=== PATIENT | female | born 1945 | race Caucasian/White ===

== ENCOUNTER → 2019-09-27 | Outpatient (CLI) | payer MEDICARE ==
[~2019-09-27] MED LIST: ASCO10004 PO; ASPI-496 PO; ATOR20TA37 PO; CALC-126 PO; CHOL200074 PO; CYAN1TAB29 PO; LOSA25TA25 PO; LUTE1CAP3 PO; MULT-658 PO; OMEG1CAP24 PEG; VIT1CAPS42 PO
[2019-09-27 16:10] LABS: BASOPHILS # (AUTO) 0.09 x10^3/uL (0-0.1); BASOPHILS % (AUTO) 1 % (0-1); EOSINOPHILS # (AUTO) 0.33 x10^3/uL (0-0.4); EOSINOPHILS % (AUTO) 3 % (1-7); LYMPHOCYTES # (AUTO) 2.95 x10^3/uL (1-3.4); LYMPHOCYTES % (AUTO) 29 % (22-44); MD NO; MEAN CORPUSCULAR HGB CONC 32.7 g/dL (32.4-35.8); MEAN PLATELET VOLUME 8.6 fL (7.4-10.4); MONOCYTES # (AUTO) 0.62 x10^3/uL (0.2-0.8); MONOCYTES % (AUTO) 6 % (2-9); NEUTROPHILS # (AUTO) 6.17 x10^3/uL (1.8-6.8); NEUTROPHILS % (AUTO) 61 % (42-75); PLATELET COUNT 238 x10^3/uL (130-400); RED BLOOD COUNT 4.21 x10^6/uL (3.82-5.3)
[2019-09-27 16:21] LABS: INTERNATIONAL NORMALIZED RATIO 0.96 (0.93-1.1); PROTHROMBIN TIME 10.2 Seconds (9.6-11.5)
[2019-09-27 16:23] LABS: ALANINE AMINOTRANSFERASE 35 U/L (12-78); ALBUMIN 3.6 g/dL (3.4-5.0); ANION GAP 4 mmol/L (5-15); CALCIUM 9.3 mg/dL (8.5-10.1); CHLORIDE 110 mmol/L (98-107)
[2019-09-27 16:25] LABS: ALKALINE PHOSPHATASE 87 U/L (45-117); BILIRUBIN,TOTAL 0.5 mg/dL (0.2-1.0); CREATININE 0.77 mg/dL (0.55-1.02); TOTAL PROTEIN 7.2 g/dL (6.4-8.2)
== END | disposition home or self-care (01) ==
LOC: STAR 15:02
PROVIDERS: ATTEND Orthopaedic Surgery
DX: Z01.818 Encounter for other preprocedural examination (principal); M16.12 Unilateral primary osteoarthritis, left hip
CPT/HCPCS: 36415; 80053; 83036; 85025; 85610; 85730; 87081; 93005

== ENCOUNTER 2019-10-04 06:21 | Observation (INO) | payer MEDICARE ==
[~2019-10-04] VITALS: Ht 170.2 cm; Wt 77.3 kg
[2019-10-04] MEDS ORDERED: BISACODYL 10 MG SUPP PR PRN (06:30)
[2019-10-04] MEDS ORDERED: SENNA/DOCUSATE TABLET PO PRN (06:30)
[2019-10-04] MEDS ORDERED: DIPHENHYDRAMINE 50 MG CAPSULE PO PRN (06:30)
[2019-10-04] MEDS ORDERED: MAGNESIUM HYDROXIDE 8%, 30ML UDC PO PRN (06:30)
[2019-10-04] MEDS ORDERED: HYDROcodone/APAP 5/325 TABLET PO PRN (06:30)
[2019-10-04] MEDS ORDERED: ZOLPIDEM 5MG TABLET PO PRN (06:30)
[2019-10-04] MEDS ORDERED: ACETAMINOPHEN 650 MG/20.3 ML UDC PO PRN (06:30)
[2019-10-04] MEDS ORDERED: ONDANSETRON 4 MG TABLET PO PRN (06:30)
[2019-10-04] MEDS ORDERED: ONDANSETRON 2MG/ML, 2ML IV PRN (06:30)
[2019-10-04] MEDS ORDERED: LACTATED RINGERS 1,000 ML IV SCH (06:47)
[2019-10-04 06:59] VITALS: BP 136/82
[2019-10-04] MEDS ORDERED: GABAPENTIN 300 MG CAPSULE PO ONE (07:00)
[2019-10-04] MEDS ORDERED: ACETAMINOPHEN 500 MG TABLET PO ONE (07:00)
[2019-10-04] MEDS ORDERED: CHLORHEXIDINE 15 ML UDC MM ONE (07:00)
[2019-10-04] MEDS ORDERED: TRANEXAMIC ACID 100 MG/ML, 10ML ONE ×2 (07:02→07:58)
[2019-10-04] MEDS ORDERED: ROPIvacaine/PF 0.5%, 20 ML ONE (07:02)
[2019-10-04] MEDS ORDERED: KETOROLAC 60 MG/2 ML ONE (07:02)
[2019-10-04] MEDS ORDERED: ROPIvacaine/PF 0.5%, 30 ML ONE (07:03)
[2019-10-04] MEDS ORDERED: SODIUM CHLORIDE 0.9% 50 ML ONE (07:03)
[2019-10-04] MEDS ORDERED: EPINEPHRINE 1 MG/ML, 1ML ONE (07:03)
[2019-10-04] MEDS ORDERED: VANCOMYCIN 1,000 MG ONE (07:03)
[2019-10-04] MEDS ORDERED: FENTANYL PF 100 MCG/2ML ONE ×2 (07:16→09:12)
[2019-10-04] MEDS ORDERED: MIDAZOLAM 1 MG/ML, 2ML ONE (07:16)
[2019-10-04] MEDS ORDERED: ROCURONIUM 10MG/ML,5ML ONE (07:17)
[2019-10-04] MEDS ORDERED: SUCCINYLCHOLINE 20 MG/ML, 10ML ONE (07:17)
[2019-10-04] MEDS ORDERED: CEFAZOLIN 1,000 MG ONE (07:17)
[2019-10-04] MEDS ORDERED: NEOSTIGMINE 1 MG/ML, 10ML ONE (07:17)
[2019-10-04] MEDS ORDERED: GLYCOPYRROLATE 0.2MG/1ML, 5ML ONE (07:17)
[2019-10-04] MEDS ORDERED: DEXAMETHASONE 4 MG/ML, 1ML ONE (07:17)
[2019-10-04] MEDS ORDERED: PROPOFOL 10 MG/ML, 20ML ONE (07:17)
[2019-10-04] MEDS ORDERED: ONDANSETRON 2MG/ML, 2ML ONE (07:17)
[2019-10-04] MEDS ORDERED: SUGAMMADEX 200 MG/2 ML IVPush ONE (07:54)
[2019-10-04] MEDS ORDERED: LIDOCAINE PF 2%, 5ML ONE (07:54)
[2019-10-04] MEDS ORDERED: PROMETHAZINE 25 MG/ML, 1ML IVPush PRN (08:00)
[2019-10-04] MEDS ORDERED: OXYcodone 5 MG/5 ML ORAL.SOL UDC PO PRN (08:00)
[2019-10-04] MEDS ORDERED: MEPERIDINE/PF 25MG/0.5ML IVPush PRN (08:00)
[2019-10-04] MEDS: DOCUSATE 100 MG CAPSULE PO SCH ×2 (09:00→20:26)
[2019-10-04] MEDS: FENTANYL PF 100 MCG/2ML IV PRN ×2 (09:10→09:20)
[2019-10-04] MEDS ORDERED: OXYcodone 5 MG/5 ML ORAL.SOL UDC ONE (09:12)
[2019-10-04] MEDS ORDERED: HYDROmorphone 1 MG/ML, 1ML INJ ONE ×2 (09:23→09:57)
[2019-10-04] MEDS ORDERED: DIAZEPAM 5 MG/ML, 2ML ONE (09:25)
[2019-10-04] MEDS ORDERED: DIAZEPAM 5 MG/ML, 2ML IVPush PRN (09:30)
[2019-10-04] MEDS: HYDROmorphone 1 MG/ML, 1ML INJ IVPush PRN ×3 (09:40→10:05)
[2019-10-04 13:11] VITALS: BP 107/71
[2019-10-04] MEDS: NS + 20MEQ KCL 1,000 ML IV SCH ×2 (16:09→18:57)
[2019-10-04] MEDS: CEFAZOLIN PMX 2GM/50ML 50 ML IVPB SCH (16:09)
[2019-10-04] MEDS: ASPIRIN 81 MG TABLET EC PO SCH (18:06)
[2019-10-04 19:51] VITALS: BP 106/69
[2019-10-04] MEDS: OXYcodone IR 5MG TABLET PO PRN (20:27)
[2019-10-05 00:44] VITALS: BP 121/68
[2019-10-05] MEDS: CEFAZOLIN PMX 2GM/50ML 50 ML IVPB SCH (00:50)
[2019-10-05 03:40] VITALS: BP 159/67
[2019-10-05] MEDS: OXYcodone IR 5MG TABLET PO PRN ×2 (03:44→08:06)
[2019-10-05] MEDS ORDERED: HYDROmorphone 1 MG/ML, 1ML INJ IVPush PRN (04:30)
[2019-10-05] MEDS: ASPIRIN 81 MG TABLET EC PO SCH (05:31)
[2019-10-05] MEDS: NS + 20MEQ KCL 1,000 ML IV SCH (05:53)
[2019-10-05] MEDS ORDERED: DEXAMETHASONE 4 MG/ML, 1ML IVPush SCH (06:00)
[2019-10-05 07:25] VITALS: BP 111/65
[2019-10-05] MEDS: DOCUSATE 100 MG CAPSULE PO SCH (08:05)
[2019-10-05] MEDS ORDERED: LOSARTAN 25MG TABLET PO SCH (09:00)
[2019-10-05 11:07] VITALS: BP 102/58
[2019-10-05] MEDS ORDERED: ATORVASTATIN 20 MG TABLET PO SCH (21:00)
== END 2019-10-05 12:24 | disposition home or self-care (01) ==
LOC: OUT 06:21 → 4NE 11:30 → OUT 23:59 → DCLOUNGE 10-05 12:21
PROVIDERS: ADMIT Orthopaedic Surgery; ATTEND Orthopaedic Surgery
DX: Z03.818 Encounter for observation for suspected exposure to other biological agents ruled out (principal); M16.12 Unilateral primary osteoarthritis, left hip; I10 Essential (primary) hypertension; E78.5 Hyperlipidemia, unspecified; Z79.899 Other long term (current) drug therapy
CPT/HCPCS: 27130; 36415; 72170; 73501; 76000; 85014; 85018; 87635; 96365; 96366; 96375; 97110; 97161; 97165; C1713; C1776; G0378; J0171; J0330; J0690; J1100; J1170; J1885; J2250; J2405; J2704; J2710; J2795; J3010; J3360; J3370; J3480